=== PATIENT | female | born 1985 | race Caucasian/White ===

== ENCOUNTER → 2024-03-06 07:35 | Outpatient (REF) | payer BC, SELFPAY ==
[2024-03-06 08:10] LABS: Ionized Calcium 1.15 mMOL/L (1.15-1.33)
[2024-03-06 09:10] LABS: ALT (SGPT) 19 U/L (0-35); AST (SGOT) 23 U/L (14-36); Albumin 4.1 g/dl (3.5-5.0); Alkaline Phosphatase 83 U/L (38-126); Blood Urea Nitrogen 12 mg/dl (7-17); Calcium 8.8 mg/dl (8.4-10.2); Carbon Dioxide 21 mmol/L (22-30); Chloride 108 mmol/L (98-107); Glucose 93 mg/dl (70-99); Potassium 3.8 mmol/L (3.5-5.1); Sodium 138 mmol/L (135-145); Total Bilirubin 0.9 mg/dl (0.2-1.3); Total Protein 6.7 g/dl (6.3-8.2); eGFR > 60.00
== END ==
LOC: REG 07:35
PROVIDERS: ATTENDING PHYSICIAN Physician Assistant; FAMILY PHYSICIAN Internal Medicine
DX: E34.9 Endocrine disorder, unspecified (principal)
CPT/HCPCS: 36415; 80053; 82330

== ENCOUNTER → 2024-03-08 07:46 | Outpatient (REF) | payer BC, SELFPAY ==
[2024-03-08 09:56] LABS: Urine Calcium 10.3 mg/dl
[2024-03-08 09:57] LABS: 24 Hour Urine Calcium 319.3 mg/day; 24 Hour Urine Creatinine 1.661 gm/day (0.8-1.8); 24 Hour Urine Total Volume 3100 ml
== END ==
LOC: REG 07:46
PROVIDERS: ATTENDING PHYSICIAN Physician Assistant; FAMILY PHYSICIAN Internal Medicine
DX: E34.9 Endocrine disorder, unspecified (principal)
CPT/HCPCS: 81050; 82340; 82570

== ENCOUNTER → 2024-03-26 06:46 | Outpatient (REF) | payer BC, SELFPAY ==
[2024-03-26 08:28] LABS: Hepatitis B Surface Antibody Positive
== END ==
LOC: REG 06:46
PROVIDERS: ATTENDING PHYSICIAN Internal Medicine
DX: Z76.89 Persons encountering health services in other specified circumstances (principal)
CPT/HCPCS: 36415; 86706; 86787

== ENCOUNTER → 2024-04-24 07:37 | Outpatient (REF) | payer BC, SELFPAY ==
[2024-04-24 08:45] LABS: % Basophils 0.5 % (0-2); % Eosinophils 2.3 % (0-6); % Immature Granulocytes 0.2 % (0-0.5); % Lymphocytes 18.3 % (20.5-51.1); % Neutrophils 75.7 % (42.2-75.2); Absolute Eosinophils 0.2 10^3/uL (0-0.7); Absolute Lymphocytes 1.2 10^3/uL (1.2-3.4); Absolute Monocytes 0.2 10^3/uL (0.1-0.6); Hematocrit 38.8 % (37.0-47.0); Hemoglobin 12.2 g/dL (12.0-16.0); Mean Corp Hgb Conc. 31.4 g/dL (33.0-37.0); Mean Corpuscular Hgb 27.1 pg (27.0-31.0); Mean Corpuscular Volume 86.2 fL (81.0-99.0); Mean Platelet Volume 12.4 fL (7.4-10.4); Nucleated Red Blood Cells % 0 %; Platelet Count 163 10^3/uL (130-400); Red Cell Dist. Width 14.4 % (11.5-14.5); White Blood Cell Count 6.7 10^3/uL (4.8-10.8)
[2024-04-24 08:50] LABS: Ionized Calcium 1.13 mMOL/L (1.15-1.33)
[2024-04-24 09:19] LABS: ALT (SGPT) 18 U/L (0-35); AST (SGOT) 24 U/L (14-36); Albumin 4.1 g/dl (3.5-5.0); Alkaline Phosphatase 83 U/L (38-126); Blood Urea Nitrogen 10 mg/dl (7-17); Calcium 8.5 mg/dl (8.4-10.2); Carbon Dioxide 21 mmol/L (22-30); Chloride 109 mmol/L (98-107); Direct Bilirubin 0.2 mg/dl (0.0-0.4); Glucose 91 mg/dl (70-99); HDL Cholesterol 56 mg/dl; Iron 55 ug/dl (37-170); LDL Cholesterol, Calculated 54 mg/dl; Magnesium 2.2 mg/dl (1.6-2.3); Potassium 4.1 mmol/L (3.5-5.1); Sodium 138 mmol/L (135-145); Total Bilirubin 1.1 mg/dl (0.2-1.3); Total Cholesterol 125 mg/dl (50-199); Total Protein 6.6 g/dl (6.3-8.2); Triglyceride 76 mg/dl (10-149); Very Low Density Lipoprotein 15 mg/dl (0-30); eGFR > 60.00
[2024-04-24 09:36] LABS: Intact PTH 178.7 pg/ml (13.6-85.8)
[2024-04-24 09:54] LABS: Ferritin 6.2 ng/ml (6.24-137)
[2024-04-24 10:25] LABS: Folate > 20.0 ng/ml (2.76-20); Vitamin B12 905 pg/ml (239-931)
[2024-04-26 20:37] LABS: Zinc 73.3 ug/dL (60.0-120.0)
== END ==
LOC: REG 07:37
PROVIDERS: ATTENDING PHYSICIAN Nurse Practitioner Adult Health; FAMILY PHYSICIAN Internal Medicine
DX: K90.49 Malabsorption due to intolerance, not elsewhere classified (principal); R79.89 Other specified abnormal findings of blood chemistry
CPT/HCPCS: 36415; 80048; 80061; 80076; 82306; 82330; 82607; 82728; 82746; 83540; 83735; 83970; 84425; 84446; 84590; 84630; 85025

== ENCOUNTER → 2024-09-27 06:50 | Outpatient (REF) | payer BC, SELFPAY ==
[2024-09-27 07:22] LABS: Ionized Calcium 1.22 mMOL/L (1.15-1.33)
[2024-09-27 08:34] LABS: ALT (SGPT) 22 U/L (0-35); AST (SGOT) 23 U/L (14-36); Albumin 4.4 g/dl (3.5-5.0); Alkaline Phosphatase 80 U/L (38-126); Blood Urea Nitrogen 11 mg/dl (7-17); Calcium 8.7 mg/dl (8.4-10.2); Carbon Dioxide 21 mmol/L (22-30); Chloride 110 mmol/L (98-107); Glucose 90 mg/dl (70-99); Potassium 4.5 mmol/L (3.5-5.1); Sodium 142 mmol/L (135-145); Total Bilirubin 0.7 mg/dl (0.2-1.3); eGFR > 60.00
[2024-09-27 08:49] LABS: TSH 1.44 uIU/ml (0.47-4.68)
[2024-09-28 11:01] LABS: Intact PTH 111.7 pg/ml (13.6-85.8)
== END ==
LOC: REG 06:50
PROVIDERS: ATTENDING PHYSICIAN Physician Assistant; FAMILY PHYSICIAN Internal Medicine; REFERRING PHYSICIAN Nurse Practitioner Adult Health
DX: E55.9 Vitamin D deficiency, unspecified (principal); E34.9 Endocrine disorder, unspecified
CPT/HCPCS: 36415; 80053; 82306; 82330; 83970; 84443

== ENCOUNTER → 2024-09-29 07:11 | Outpatient (REF) | payer BC, SELFPAY ==
[2024-09-29 10:46] LABS: 24 Hour Urine Total Volume 3000 ml
[2024-09-29 11:10] LABS: 24 Hour Urine Creatinine 1.629 gm/day (0.8-1.8); Urine Calcium 7.9 mg/dl
== END ==
LOC: REG 07:11
PROVIDERS: ATTENDING PHYSICIAN Physician Assistant
DX: E34.9 Endocrine disorder, unspecified (principal)
CPT/HCPCS: 81050; 82340; 82570

== ENCOUNTER → 2025-01-24 22:00 | Outpatient (REF) | payer BC, SELFPAY | LOC: DHSLP 22:00 | PROVIDERS: ATTENDING PHYSICIAN Internal Medicine | DX: G47.61 Periodic limb movement disorder (principal); R06.83 Snoring | CPT/HCPCS: 95810 ==

== ENCOUNTER → 2025-01-25 08:00 | Outpatient (REF) | payer BC, SELFPAY | LOC: DHSLP 08:00 | PROVIDERS: ATTENDING PHYSICIAN Internal Medicine | DX: G47.11 Idiopathic hypersomnia with long sleep time (principal) | CPT/HCPCS: 95805 ==